=== PATIENT | male | born 1955 | race Caucasian/White ===

== ENCOUNTER 2017-03-15 07:25 | Day surgery (SDC) | payer BC ==
[2017-03-15] MEDS ORDERED: NALOXONE HCL INJ/PF 0.4 MG/1 ML SDV ONE (07:50)
[2017-03-15] MEDS ORDERED: ONDANSETRON HCL INJ/PF 4 MG/2 ML SDV ONE (07:50)
[2017-03-15] MEDS ORDERED: DIPHENHYDRAMINE HCL 50 MG/ML VIAL ONE (07:50)
[2017-03-15] MEDS ORDERED: EPINEPHRINE INJ 1 MG/10 ML DISP.SYRIN ONE (07:51)
[2017-03-15] MEDS ORDERED: FLUMAZENIL INJ 0.5 MG/5 ML VIAL IV ONE (07:51)
[2017-03-15] MEDS ORDERED: GLUCAGON,HUMAN RECOMB 1 MG INJ ONE (07:51)
[2017-03-15] MEDS: MIDAZOLAM 2 MG/2 ML INJ ONE ×2 (08:12→08:17)
[2017-03-15] MEDS: FENTANYL CITRATE INJ/PF 100 MCG/2 ML AMPUL ONE ×3 (08:14→08:20)
[2017-03-15 09:20] VITALS: BP 115/60
--- NOTE | 2017-03-15 09:54 | Operative Report ---
Operative Report DATE OF SURGERY: 03/15/17 Operative Report: The risks benefits and alternatives of the procedure explained to the patient in detail and informed consent is obtained. A GIF Olympus video scope was inserted into the patient's mouth and hypopharynx, the esophagus is identified intubated and insufflated, the scope was then advanced through the esophagus stomach and duodenum, retroflexion maneuver is done, the esophagus stomach and first and second portions of the duodenum examined PREOPERATIVE DIAGNOSIS: GI bleeding POSTOPERATIVE DIAGNOSIS: Status post gastric bypass. Nonfunctional gastric bypass direct access to the inaja stomach is noted. Clean-based gastric ulcer without any active bleeding adjacent to the entry point to the inaja stomach OPERATION: EGD with biopsy SURGEON: SOMMER GARCIA ANESTHESIA: Moderate Sedation - 4 mg of Versed, 100 mcg of fentanyl. Conscious sedation monitoring time 30 minutes. TISSUE REMOVED OR ALTERED: Gastric specimen obtained to rule out Helicobacter pylori COMPLICATIONS: None. ESTIMATED BLOOD LOSS: None. INTRAOPERATIVE FINDINGS: As described above. PROCEDURE: Patient tolerated procedure well. No immediate postprocedure complications are noted. Patient discharged in good condition. Discharge date 03/15/2017. Discharge diet: Regular. Discharge activity: Regular. [id number] to discuss findings. Patient instructed to call the office or proceed to the emergency room should there be any further problems or questions. Surgical referral. We will wait on biopsies.
== END 2017-03-15 10:00 | disposition home or self-care (01) ==
LOC: END 07:25
PROVIDERS: ATTEND Internal Medicine Gastroenterology
PROC: 0DB68ZX Excision of Stomach, Via Natural or Artificial Opening Endoscopic, Diagnostic (ICD-10-PCS; principal; 2017-03-15 08:00)
DX: K25.9 Gastric ulcer, unspecified as acute or chronic, without hemorrhage or perforation (principal); K95.89 Other complications of other bariatric procedure; K92.1 Melena; D64.9 Anemia, unspecified; M06.9 Rheumatoid arthritis, unspecified; I10 Essential (primary) hypertension; M10.9 Gout, unspecified; M47.9 Spondylosis, unspecified; Z87.891 Personal history of nicotine dependence; Z79.899 Other long term (current) drug therapy
CPT/HCPCS: 43239; 88342 ×2; 88305 ×2; J2250; J3010; J0171; J1200; J1610; J2310; J2405; J3490

== ENCOUNTER → 2019-09-07 | Outpatient (CLI) | payer MEDICARE, MEDICAID ==
--- NOTE | 2019-09-07 15:20 | XCELERA REPORT ---
[address] [address] Lower Extremity Venous Evaluation Procedure: A bilateral duplex scan of the lower extremity veins was performed. The evaluation included responses to compression and other maneuvers with patient in the supine and standing positions to assess venous insufficiency. Right Sided Venous Evaluation Deep venous system evaluation shows Partial flow, echogenic content in a part of the Gastrocnemius vein. Otherwise patent veins with no significant reflux identified. Sapheno Femoral junction: no reflux. Greater Saphenous vein, Proximal thigh: reflux: no reflux. Greater Saphenous vein, mid thigh: reflux:no reflux. Greater Saphenous vein, Distal thigh: reflux:no reflux. Greater Saphenous vein, Proximal below knee: reflux: none Greater Saphenous vein, Mid below knee: reflux: none. Greater Saphenous vein, Distal below knee: reflux: no reflux. No significant Perforators identified. Left Sided Venous Evaluation Deep venous system evaluation shows patent veins with no significant reflux identified. Sapheno Femoral junction: no reflux. Greater Saphenous vein, Proximal thigh: reflux: no reflux. Greater Saphenous vein, mid thigh: reflux:no reflux. Greater Saphenous vein, Distal thigh: reflux:no reflux. Greater Saphenous vein, Proximal below knee: reflux: 2.6 seconds. Diameter of 4 mm. Greater Saphenous vein, Mid below knee: reflux: 2.06 seconds. Diameter of 3 mm. Greater Saphenous vein, Distal below knee: reflux: no reflux. Small Saphenous vein,: reflux: 2.75 seconds. Diameter of 5 mm. No significant Perforators identified. Interpretation Summary Chronic, limited segment of Deep venous thrombosis in the right Gastrocnemius vein. Limited Superficial reflux in the left Greater and Small Saphenous veins. Name: CAITLIN RAVI Age: 64 yrs Gender: Male : 1955 Patient Status: Outpatient Patient Location: Study Date: 09/07/2019 11:32 AM Reason For Study: PAIN IN LEGS Ordering Physician: RICO YOU Performed By: Dominga Courtney : RICO YOU > Rico You
== END ==
LOC: SP 10:27
PROVIDERS: ATTEND Surgery
DX: I87.2 Venous insufficiency (chronic) (peripheral) (principal); M79.669 Pain in unspecified lower leg
CPT/HCPCS: 93970

== ENCOUNTER 2019-10-09 11:03 | Observation (INO) | payer MEDICARE, MEDICAID ==
[2019-10-09] MEDS ORDERED: NORMAL SALINE 1000 ML 1,000 ML IV ONE (11:28)
--- NOTE | 2019-10-09 11:31 | ER Document Report ---
ED Medical Screen (RME) - General Chief Complaint: Weakness Stated Complaint: NEAR SYNCOPE/WEAKNESS Time Seen by Provider: 10/09/19 11:25 Primary Care Provider: CLARI SANTO MD [Primary Care Provider] - Follow up as needed TRAVEL OUTSIDE OF THE [place] IN LAST 30 DAYS: No - HPI Notes: 10/09/19 11:29 Patient is a 64-year-old male with a history of gastric bypass, osteoarthritis, rheumatoid arthritis, previous gastric ulcer with bleeding 4 to 5 years ago who presents complaining of generalized weakness and fatigue over the past several days. He has noted some epigastric abdominal pain as well. Patient has noticed black-colored stool and was placed on Xarelto about 3 weeks ago for blood clots in his legs. No fever, chest pain, shortness of breath. I have treated and performed a rapid initial assessment of this patient. A comprehensive ED assessment and evaluation of the patient, analysis of test results and completion of medical decision making process will be conducted by additional ED providers. PHYSICAL EXAMINATION: GENERAL: Well-appearing, well-nourished and in no acute distress. A&Ox4. Answers questions appropriately. Abdomen: Limited exam in triage, but tenderness over the epigastrium to palpation Skin: There is some pallor noted to the skin/eyes. - Related Data Allergies/Adverse Reactions: aspirin Adverse Reaction (Verified 03/14/17 17:30) Home Medications: Xarelto. Oxycodone. Omeprazole. Buspirone. Sucrafate. Lisinopril. Methotrexate. Aspirin Past Medical History - Social History Frequency of alcohol use: None Drug Abuse: None - Past Medical History Cardiac Medical History: Denies: Hx Coronary Artery Disease, Hx Heart Attack, Hx Hypertension Pulmonary Medical History: Denies: Hx Asthma, Hx Bronchitis, Hx COPD, Hx Pneumonia Neurological Medical History: Denies: Hx Cerebrovascular Accident, Hx Seizures Musculoskeltal Medical History: Reports Hx Arthritis - RA, OSTEOARTHRITIS - Immunizations Hx Diphtheria, Pertussis, Tetanus Vaccination: Yes Physical Exam - Vital signs Vitals: Temp Pulse Resp BP Pulse Ox 98.3 F 77 18 119/68 100 10/09/19 11:12 10/09/19 11:12 10/09/19 11:12 10/09/19 11:12 10/09/19 11:12 Course - Vital Signs Vital signs: Temp Pulse Resp BP Pulse Ox 98.3 F 77 18 119/68 100 10/09/19 11:12 10/09/19 11:12 10/09/19 11:12 10/09/19 11:12 10/09/19 11:12 Doctor's Discharge - Discharge Referrals: CLARI SANTO MD [Primary Care Provider] - Follow up as needed
[2019-10-09] MEDS ORDERED: PANTOPRAZOLE SODIUM 40 MG VIAL IV ONE (12:47)
[2019-10-09 12:51] LABS: ABSOLUTE LYMPHOCYTES (AUTO) 2.1 10^3/uL (0.5-4.7); ABSOLUTE MONOCYTES (AUTO) 0.4 10^3/uL (0.1-1.4); ABSOLUTE NEUT (AUTO) 4.7 10^3/uL (1.7-8.2); BASOPHILS % (AUTO) 0.5 % (0-2); EOSINOPHILS % (AUTO) 0.6 % (0-6); HEMATOCRIT 34.5 % (37.9-51.0); HEMOGLOBIN 11.8 g/dL (13.5-17.0); MEAN CORPUSCULAR HEMOGLOBIN 33.8 pg (27.0-33.4); MEAN CORPUSCULAR HGB CONC 34.3 g/dL (32.0-36.0); MEAN CORPUSCULAR VOLUME 99 fl (80-97); MONOCYTES % (AUTO) 5.8 % (3-13); PLATELET COUNT 170 10^3/uL (150-450); RED BLOOD COUNT 3.49 10^6/uL (4.35-5.55); RED CELL DISTRIBUTION WIDTH 15.2 % (11.5-14.0); SEGMENTED NEUTROPHILS % (AUTO) 64.1 % (42-78); TOTAL CELLS COUNTED % (AUTO) 100 %; WHITE BLOOD COUNT 7.3 10^3/uL (4.0-10.5)
[2019-10-09 12:55] LABS: INTERNATIONAL RATION (INR) 1.58
[2019-10-09 12:56] LABS: PARTIAL THROMBOPLASTIN TIME 29.9 SEC (23.5-35.8)
[2019-10-09 13:48] LABS: ALBUMIN 3.8 g/dL (3.5-5.0); ALKALINE PHOSPHATASE 38 U/L (38-126); ANION GAP 10 (5-19); ASPARTATE AMINO TRANSFERASE 51 U/L (17-59); BILIRUBIN,DIRECT 0.3 mg/dL (0.0-0.4); BILIRUBIN,TOTAL 1.1 mg/dL (0.2-1.3); BLOOD UREA NITROGEN 38 mg/dL (7-20); CALCIUM 9.6 mg/dL (8.4-10.2); CARBON DIOXIDE 24 mmol/L (22-30); CHLORIDE 104 mmol/L (98-107); GLUCOSE 88 mg/dL (75-110); POTASSIUM 4.7 mmol/L (3.6-5.0); TOTAL PROTEIN 7.3 g/dL (6.3-8.2)
[2019-10-09 14:04] LABS: APPEARANCE,URINE CLEAR; BILIRUBIN,URINE NEGATIVE (NEGATIVE); COLOR,URINE YELLOW; GLUCOSE, URINE NEGATIVE (NEGATIVE); KETONES,URINE NEGATIVE (NEGATIVE); PROTEIN,URINE NEGATIVE (NEGATIVE); URINE SPECIFIC GRAVITY 1.017; UROBILINOGEN,URINE NEGATIVE mg/dL (<2.0)
--- NOTE | 2019-10-09 14:42 | ER Document Report ---
ED General - General Chief Complaint: Weakness Stated Complaint: NEAR SYNCOPE/WEAKNESS Time Seen by Provider: 10/09/19 11:25 Primary Care Provider: CLARI SANTO MD [Primary Care Provider] - Follow up as needed TRAVEL OUTSIDE OF THE [place] IN LAST 30 DAYS: No - HPI Notes: Patient is a 64-year-old male who presents emergency department for evaluation of weakness and melena. He states that he has had 3 or 4 episodes of melena in the last 72 hours. He states he just feels weak, states he is having trouble lifting his arms. He has a history of gastric bypass as well as a history of a gastric ulcer that was bleeding. This bleeding was self-limited. He has been on omeprazole since then, taking it as directed. The patient was placed on baby aspirin as well as Xarelto back in August 2019. He had been diagnosed at that point with a DVT. - Related Data Allergies/Adverse Reactions: aspirin Adverse Reaction (Verified 03/14/17 17:30) Home Medications: Xarelto. Oxycodone. Omeprazole. Buspirone. Sucrafate. Lisinopril. Methotrexate. Aspirin Past Medical History - General Information source: Patient - Social History Smoking Status: Never Smoker Frequency of alcohol use: None Drug Abuse: None Family History: Reviewed & Not Pertinent Patient has suicidal ideation: No Patient has homicidal ideation: No - Past Medical History Cardiac Medical History: Reports: Hx DVT, Hx Hypertension Denies: Hx Coronary Artery Disease, Hx Heart Attack Pulmonary Medical History: Denies: Hx Asthma, Hx Bronchitis, Hx COPD, Hx Pneumonia Neurological Medical History: Denies: Hx Cerebrovascular Accident, Hx Seizures Musculoskeletal Medical History: Reports Hx Arthritis - RA, OSTEOARTHRITIS - Immunizations Hx Diphtheria, Pertussis, Tetanus Vaccination: Yes Review of Systems - Review of Systems Constitutional: See HPI EENT: No symptoms reported Cardiovascular: No symptoms reported Respiratory: No symptoms reported Gastrointestinal: See HPI Genitourinary: No symptoms reported Musculoskeletal: No symptoms reported Skin: No symptoms reported Neurological/Psychological: No symptoms reported Physical Exam - Vital signs Vitals: Temp Pulse Resp BP Pulse Ox 98.3 F 77 18 119/68 100 10/09/19 11:12 10/09/19 11:12 10/09/19 11:12 10/09/19 11:12 10/09/19 11:12 - Notes Notes: Vital signs reviewed, please refer to chart. Head is normocephalic, atraumatic. Pupils equal round, reactive to light. Neck is supple without meningismus. Heart is regular rate and rhythm. Lungs are clear to auscultation bilaterally. Abdomen is soft, nontender, normoactive bowel sounds throughout. Extremities without cyanosis, clubbing. Posterior calves are nontender. Peripheral pulses are equal. Skin is warm and dry. Patient is awake, alert, neurological exam is nonfocal. Course - Re-evaluation Re-evalutation: 10/09/19 14:50 Patient is a 64-year-old male who presents emergency department for evaluation. He has a history of gastric bypass, gastric ulcer, and upper GI bleed. He was recently started on aspirin as well as Xarelto for chronic appearing DVT. I did look at his vascular history, it was a chronic and limited gastrocnemius DVT. Patient is stable at this time. His blood work is consistent with an upper GI bleed, but his hemoglobin is only mildly low. At this point I do believe it is reasonable to observe the patient off of aspirin and Xarelto. I wonder if it is appropriate for this patient to be on these medications for this chronic appear ing DVT at this time, particularly given his bleeding history. I spoke with Dr. Michael, he agrees, and will admit the patient for further care. - Vital Signs Vital signs: Temp Pulse Resp BP Pulse Ox 98.3 F 77 13 102/61 98 10/09/19 11:12 10/09/19 11:12 10/09/19 14:05 10/09/19 14:05 10/09/19 14:05 - Laboratory Result Diagrams: 10/09/19 12:23 10/09/19 12:23 Laboratory results interpreted by me: 10/09/19 10/09/19 10/09/19 12:23 12:23 12:23 RBC 3.49 L Hgb 11.8 L Hct 34.5 L MCV 99 H MCH 33.8 H RDW 15.2 H PT 19.0 H BUN 38 H Discharge - Discharge Clinical Impression: Upper GI bleed Condition: Stable Disposition: ADMITTED OBSERVATION Admitting Provider: Dr. Michael, Hospitalist Unit Admitted: Telemetry Referrals: CLARI SANTO MD [Primary Care Provider] - Follow up as needed
[2019-10-09] MEDS ORDERED: (PENDING PHARMACY ID) (Oxycodone Hcl/Acetaminophen [Oxycodone-Acetaminophen 10-325] 1 EACH PO PRN (16:30)
[2019-10-09] MEDS ORDERED: (PENDING PHARMACY ID) (Doxepin Hcl [Silenor] 6 MG) PO PRN (16:30)
--- NOTE | 2019-10-09 17:19 | PDOC H&P ---
History of Present Illness Admission Date/PCP: 10/09/19 15:03 CLRAI SANTO MD History of Present Illness: CAITLIN RAVI is a 64 year old male with past medical history of hypertension, gastric bypass, peptic ulcer disease, DVT, rheumatoid arthritis, former smoker who presents the ED with progressive black tarry sticky stools x4/3 days and persistent aching abdominal pain. Patient has had a upper GI bleed in the past due to ulcers and this was verified by EGD done by his GI physician. They had stated this was due to loosened shayan along his gastric bypass line. Hemoglobin here is above 11 however patient is on Xarelto and aspirin per his PCP orders. 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 He has been on aspirin presumably for significant family history of [place] in his father at age 36. General surgery available here for end oscopies if needed and he will be contacted if hemoglobin continues to drop. Otherwise, patient will be monitored here with serial hemoglobin rechecks while off his blood thinner medications. He may be appropriate for outpatient follow- up with his GI physician if he has no further bleeding. Past Medical History Cardiac Medical History: Reports: DVT, Hypertension Denies: Coronary Artery Disease, Myocardial Infarction Pulmonary Medical History: Denies: Asthma, Bronchitis, Chronic Obstructive Pulmonary Disease (COPD), Pneumonia Neurological Medical History: Denies: Seizures Malignancy Medical History: Reports: None GI Medical History: Reports: Peptic Ulcer Disease Musculoskeltal Medical History: Reports: Arthritis - RA, OSTEOARTHRITIS Skin Medical History: Reports: None Psychiatric Medical History: Reports: None Hematology: Reports: Anemia - BORDERLINE Past Surgical History Past Surgical History: Reports: Gastric Bypass Surgery, Herniorrhaphy Social History Information Source: Patient Lives with: Spouse/Significant other Smoking Status: Former Smoker - Advance Directive Resuscitation Status: Full Code Family History Family History: Reviewed & Not Pertinent, CAD, DM Parental Family History Reviewed: Yes Children Family History Reviewed: NA Sibling(s) Family History Reviewed.: NA Medication/Allergy Home Medications: Buspirone HCl [Buspar 5 mg Tablet] 7.5 mg PO BID 10/09/19 Doxepin HCl [Silenor] 6 mg PO HSP PRN 10/09/19 Etanercept [Enbrel Sureclick] 50 mg SQ 10/09/19 Furosemide [Lasix] 20 mg PO DAILY 10/09/19 Lisinopril 20 mg PO DAILY 10/09/19 Methotrexate/Pf [Otrexup 15 mg/0.4 ml Auto-Inj] 15 mg SQ 10/09/19 Omeprazole 40 mg PO BID 10/09/19 Oxycodone HCl/Acetaminophen [Oxycodone-Acetaminophen 10-325] 1 each PO Q6HP PRN 10/09/19 Rivaroxaban [Xarelto 15 mg Tablet] 15 mg PO BID 10/09/19 Sucralfate [Carafate 1 gm Tablet] 1 gm PO QID 10/09/19 Allergies/Adverse Reactions: aspirin Adverse Reaction (Verified 03/14/17 17:30) Review of Systems All systems: reviewed and no additional remarkable complaints except as stated Constitutional: PRESENT: as per HPI, fatigue, weakness Cardiovascular: PRESENT: as per HPI Gastrointestinal: PRESENT: abdominal pain, heartburn, melena Genitourinary: PRESENT: as per HPI Musculoskeletal: PRESENT: as per HPI Integumentary: PRESENT: as per HPI Neurological: PRESENT: as per HPI Psychiatric: PRESENT: as per HPI Endocrine: PRESENT: as per HPI Hematologic/Lymphatic: PRESENT: as per HPI Allergic/Immunologic: PRESENT: as per HPI Physical Exam Vital Signs: Temp Pulse Resp BP Pulse Ox 98.1 F 77 22 H 112/72 100 10/09/19 16:00 10/09/19 11:12 10/09/19 16:01 10/09/19 16:00 10/09/19 16:01 Intake & Output 10/08/19 10/09/19 10/10/19 06:59 06:59 06:59 Intake Total 1000 Balance 1000 Weight 95.6 kg General appearance: PRESENT: no acute distress, well-developed, well-nourished Head exam: PRESENT: atraumatic, normocephalic Eye exam: PRESENT: conjunctiva pink Mouth exam: PRESENT: moist Respiratory exam: PRESENT: clear to auscultation francesco. ABSENT: rales, rhonchi, wheezes Cardiovascular exam: PRESENT: RRR. ABSENT: diastolic murmur, rubs, systolic murmur GI/Abdominal exam: PRESENT: normal bowel sounds, soft, tenderness Rectal exam: PRESENT: deferred Musculoskeletal exam: PRESENT: ambulatory Neurological exam: PRESENT: alert, awake, oriented to person, oriented to place, oriented to time, oriented to situation Psychiatric exam: PRESENT: appropriate affect, normal mood Skin exam: PRESENT: dry, intact, warm Results Laboratory Results: 10/09/19 12:23 10/09/19 12:23 10/09/19 10/09/19 10/09/19 12:23 12:23 12:23 WBC 7.3 RBC 3.49 L Hgb 11.8 L Hct 34.5 L MCV 99 H MCH 33.8 H MCHC 34.3 RDW 15.2 H Plt Count 170 Seg Neutrophils % 64.1 Sodium 138.3 Potassium 4.7 Chloride 104 Carbon Dioxide 24 Anion Gap 10 BUN 38 H Creatinine 1.07 Est GFR ( Amer) > 60 Glucose 88 Calcium 9.6 Magnesium 2.1 Total Bilirubin 1.1 AST 51 Alkaline Phosphatase 38 Total Protein 7.3 Albumin 3.8 Lipase 35.7 Urine Color Urine Appearance Urine pH Ur Specific [place] Urine Protein Urine Glucose (UA) Urine Ketones Urine Blood Urine RBC (Auto) Blood Type A POSITIVE Antibody Screen NEGATIVE 10/09/19 13:30 WBC RBC Hgb Hct MCV MCH MCHC RDW Plt Count Seg Neutrophils % Sodium Potassium Chloride Carbon Dioxide Anion Gap BUN Creatinine Est GFR ( Amer) Glucose Calcium Magnesium Total Bilirubin AST Alkaline Phosphatase Total Protein Albumin Lipase Urine Color YELLOW Urine Appearance CLEAR Urine pH 6.0 Ur Specific [place] 1.017 Urine Protein NEGATIVE Urine Glucose (UA) NEGATIVE Urine Ketones NEGATIVE Urine Blood NEGATIVE Urine RBC (Auto) 0 Blood Type Antibody Screen Assessment and Plan - Diagnosis (1) Upper GI bleed Is this a current diagnosis for this admission?: Yes Plan: Has history of bleeding ulcers at staple line of gastric bypass; followed by [facility] [place] [facility] per patient Takes PPI, Carafate, Tums at home 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 Protonix twice daily started on admission GI unavailable currently but general surgery available for endoscopy if needed reportedly Trend hemoglobin; transfuse for Hgb <7 or abrupt significant drop in hgb -Patient has a large bright red bloody stool, sent for stat CTA abdomen and contact general surgery immediately (2) Acute blood loss anemia Is this a current diagnosis for this admission?: Yes Plan: Due to GI bleed Takes PPI, Carafate, Tums at home 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 Protonix twice daily started on admission GI unavailable currently but general surgery available for endoscopy if needed reportedly Trend hemoglobin (3) Gastric bypass status for obesity Is this a current diagnosis for this admission?: Yes Plan: Per patient he is consistent with his vitamin supplements Reportedly has had complications with falling staple line per patient (4) Hypertension Is this a current diagnosis for this admission?: Yes Plan: Hold home medications as BP is low on admission here in the setting of active bleeding (5) Former smoker Is this a current diagnosis for this admission?: Yes (6) Acute DVT (deep venous thrombosis) Is this a current diagnosis for this admission?: Yes Plan: Was put on Xarelto approximately 1 month ago by PCP when he was found to have acute RLE DVT and LLE superficial thrombosis Aspirin was also continued along with Xarelto which may be the source of the bleeding episodes currently Hold Xarelto and aspirin May need evaluation for IVC filter by general surgery (7) Rheumatoid arthritis Is this a current diagnosis for this admission?: Yes Plan: Takes Enbrel and methotrexate weekly on Sundays, continued (8) Peptic ulcer disease Is this a current diagnosis for this admission?: Yes (9) Melena Is this a current diagnosis for this admission?: Yes - Time Time Spent with patient: Greater than 16 minutes advance care planning time spent with patient and spouse discussing all aspects of CODE STATUS including chest compressions/cardioversion/intubation and they agreed patient would like to be full code. His M PONitish is his spouse Juan Green phone number [phone] Time Spent with patient: 35 or more minutes Medications reviewed and adjusted accordingly: Yes - Inpatient Certification Based on my medical assessment, after consideration of the patient's comorbidities, presenting symptoms, or acuity I expect that the services needed warrant INPATIENT care.: No I certify that my determination is in accordance with my understanding of Medicare's requirements for reasonable and necessary INPATIENT services [42 CFR 412.3e].: No Medical Necessity: Risk of Complication if Not Cared For in Hospital
[2019-10-09] MEDS ORDERED: (PENDING PHARMACY ID) (Buspirone Hcl [Buspar 5 Mg Tablet] 7.5 MG) PO SCH (18:00)
--- NOTE | 2019-10-09 20:56 | EKG REPORT ---
SEVERITY:- NORMAL ECG - SINUS RHYTHM : Confirmed by: Jorge A Briscoe 09-Oct-2019 20:55:11
[2019-10-09] MEDS: PANTOPRAZOLE SODIUM 40 MG VIAL IV SCH (21:41)
[2019-10-09] MEDS: SUCRALFATE 1 GM TABLET PO SCH ×2 (21:41→21:58)
[2019-10-09] MEDS: OXYCODONE HCL IR 5 MG TABLET PO PRN (21:41)
[2019-10-09] MEDS: OXYCODONE-ACETAMINOPHEN 5-325 MG TABLET PO PRN (21:42)
[2019-10-10] MEDS: OXYCODONE HCL IR 5 MG TABLET PO PRN ×3 (04:14→18:11)
[2019-10-10] MEDS: OXYCODONE-ACETAMINOPHEN 5-325 MG TABLET PO PRN ×3 (04:14→18:11)
[2019-10-10 05:38] LABS: ABSOLUTE EOSINOPHILS # (AUTO) 0.2 10^3/uL (0.0-0.6); ABSOLUTE LYMPHOCYTES (AUTO) 2.6 10^3/uL (0.5-4.7); ABSOLUTE MONOCYTES (AUTO) 0.4 10^3/uL (0.1-1.4); BASOPHILS % (AUTO) 0.5 % (0-2); HEMATOCRIT 31.9 % (37.9-51.0); HEMOGLOBIN 11.1 g/dL (13.5-17.0); LYMPHOCYTES % (AUTO) 49.7 % (13-45); MEAN CORPUSCULAR HEMOGLOBIN 34.4 pg (27.0-33.4); MEAN CORPUSCULAR HGB CONC 34.9 g/dL (32.0-36.0); MEAN CORPUSCULAR VOLUME 99 fl (80-97); MONOCYTES % (AUTO) 8.3 % (3-13); PLATELET COUNT 147 10^3/uL (150-450); RED BLOOD COUNT 3.24 10^6/uL (4.35-5.55); RED CELL DISTRIBUTION WIDTH 15.1 % (11.5-14.0); SEGMENTED NEUTROPHILS % (AUTO) 38.5 % (42-78); TOTAL CELLS COUNTED % (AUTO) 100 %; WHITE BLOOD COUNT 5.2 10^3/uL (4.0-10.5)
[2019-10-10 05:53] LABS: ALBUMIN 3.2 g/dL (3.5-5.0); ALKALINE PHOSPHATASE 33 U/L (38-126); ASPARTATE AMINO TRANSFERASE 43 U/L (17-59); BILIRUBIN,DIRECT 0.1 mg/dL (0.0-0.4); BILIRUBIN,TOTAL 0.9 mg/dL (0.2-1.3); PHOSPHORUS 4.6 mg/dL (2.5-4.5)
[2019-10-10 08:51] LABS: ABSOLUTE RETICS # 0.043 10^6/uL (0.028-0.122); RETICULOCYTE COUNT (AUTO) 1.34 % (0.66-2.85)
[2019-10-10 09:03] LABS: IRON(TIBC) 99.9 ug/dL (49-181)
[2019-10-10] MEDS: PANTOPRAZOLE SODIUM 40 MG VIAL IV SCH ×2 (09:56→21:49)
[2019-10-10] MEDS: VITAMIN B COMPLEX TABLET PO SCH (09:56)
[2019-10-10] MEDS: SUCRALFATE 1 GM TABLET PO SCH ×4 (09:56→21:49)
[2019-10-10 10:08] LABS: FOLATE 3.75 ng/mL (>2.76)
[2019-10-10] MEDS ORDERED: HYDROCORTISONE ACETATE 25 MG SUPP.RECT PR PRN (14:42)
--- NOTE | 2019-10-10 14:53 | PDOC PROGRESS REPORT ---
Subjective Progress Note for:: 10/10/19 Subjective:: Patient is a 64-year-old white male with past medical history of gastric bypass surgery, peptic ulcer disease, GI bleeding, anticoagulant use, DVT. 10/10: Patient with slightly more energy but still having dark stools. Lipase was negative and LFTs were normal. EKG showed NSR. BP is lower limit normal but patient is asymptomatic from this reportedly. No new complaints. Reason For Visit: GI BLEED, COAGULOPATHY, ACUTE BLOOD LOSS ANEMIA Physical Exam Vital Signs: Temp Pulse Resp BP Pulse Ox 97.9 F 58 L 12 107/62 98 10/10/19 12:09 10/10/19 12:09 10/10/19 12:09 10/10/19 12:09 10/10/19 12:09 Intake & Output 10/09/19 10/10/19 10/11/19 06:59 06:59 06:59 Intake Total 1458 Balance 1458 Weight 76.1 kg General appearance: PRESENT: no acute distress, well-developed, well-nourished Head exam: PRESENT: atraumatic, normocephalic Eye exam: PRESENT: conjunctiva pink Mouth exam: PRESENT: moist Respiratory exam: PRESENT: clear to auscultation francesco. ABSENT: rales, rhonchi, wheezes Cardiovascular exam: PRESENT: RRR. ABSENT: diastolic murmur, rubs, systolic murmur GI/Abdominal exam: PRESENT: normal bowel sounds, soft, tenderness - Very mild diffuse abdominal tenderness. ABSENT: distended, guarding, mass, organolmegaly, rebound Psychiatric exam: PRESENT: appropriate affect, normal mood Skin exam: PRESENT: dry, intact, warm Results Laboratory Results: 10/10/19 04:50 10/09/19 12:23 10/09/19 10/10/19 10/10/19 17:36 04:50 04:50 WBC 5.2 RBC 3.24 L Hgb 11.1 L Hct 31.9 L MCV 99 H MCH 34.4 H MCHC 34.9 RDW 15.1 H Plt Count 147 L Seg Neutrophils % 38.5 L Retic Count (auto) Phosphorus 4.6 H Magnesium 2.1 Iron TIBC % Saturation Ferritin Total Bilirubin 0.9 AST 43 Alkaline Phosphatase 33 L Total Protein 6.0 L Albumin 3.2 L Lipase 46.9 Vitamin B12 Folate 10/10/19 10/10/19 04:50 04:50 WBC RBC Hgb Hct MCV MCH MCHC RDW Plt Count Seg Neutrophils % Retic Count (auto) 1.34 Phosphorus Magnesium Iron 99.9 TIBC 301 % Saturation 33 Ferritin 88.20 Total Bilirubin AST Alkaline Phosphatase Total Protein Albumin Lipase Vitamin B12 265.0 Folate 3.75 Assessment and Plan - Diagnosis (1) Upper GI bleed Is this a current diagnosis for this admission?: Yes Plan: Has history of bleeding ulcers at staple line of gastric bypass; followed by [facility] per patient Takes PPI, Carafate, Tums at home 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 Protonix twice daily started on admission GI unavailable currently but general surgery available for endoscopy if needed emergently; if patient has no further bloody stools or melena off of anticoagulants, could potentially follow-up with GI outpatient provided he can have prompt follow-up with endoscopy promptly available if indicated Trend hemoglobin; transfuse for Hgb <7 or abrupt significant drop in hgb -Patient has a large bright red bloody stool, sent for stat CTA abdomen and contact general surgery immediately (2) Acute blood loss anemia Is this a current diagnosis for this admission?: Yes Plan: Due to GI bleed Takes PPI, Carafate, Tums at home 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 Protonix twice daily started on admission GI unavailable currently but general surgery available for endoscopy if needed reportedly Trend hemoglobin Hemoglobin went from 11.8 to 11.1 after admission Patient does also note having some bright red blood on the toilet paper intermittently likely due to hemorrhoids; added Anusol suppositories (3) Gastric bypass status for obesity Is this a current diagnosis for this admission?: Yes (4) Hypertension Is this a current diagnosis for this admission?: Yes (5) Former smoker Is this a current diagnosis for this admission?: Yes (6) Acute DVT (deep venous thrombosis) Is this a current diagnosis for this admission?: Yes (7) Rheumatoid arthritis Is this a current diagnosis for this admission?: Yes (8) Peptic ulcer disease Is this a current diagnosis for this admission?: Yes (9) Melena Is this a current diagnosis for this admission?: Yes - Time Time Spent with patient: 25-34 minutes Anticipated discharge: Home Within: within 48 hours - Inpatient Certification Medical Necessity: Significant Comorbidiites Make Outpatient Treatment Too Risky, Risk of Complication if Not Cared For in Hospital
[2019-10-11] MEDS: OXYCODONE HCL IR 5 MG TABLET PO PRN ×4 (00:30→20:25)
[2019-10-11] MEDS: OXYCODONE-ACETAMINOPHEN 5-325 MG TABLET PO PRN ×4 (00:31→20:27)
[2019-10-11 05:26] LABS: ABSOLUTE EOSINOPHILS # (AUTO) 0.1 10^3/uL (0.0-0.6); ABSOLUTE LYMPHOCYTES (AUTO) 1.6 10^3/uL (0.5-4.7); ABSOLUTE MONOCYTES (AUTO) 0.5 10^3/uL (0.1-1.4); ABSOLUTE NEUT (AUTO) 1.8 10^3/uL (1.7-8.2); BASOPHILS % (AUTO) 0.9 % (0-2); EOSINOPHILS % (AUTO) 3.3 % (0-6); HEMATOCRIT 30.7 % (37.9-51.0); HEMOGLOBIN 10.8 g/dL (13.5-17.0); LYMPHOCYTES % (AUTO) 38.6 % (13-45); MEAN CORPUSCULAR HEMOGLOBIN 34.5 pg (27.0-33.4); MEAN CORPUSCULAR HGB CONC 35.3 g/dL (32.0-36.0); MEAN CORPUSCULAR VOLUME 98 fl (80-97); PLATELET COUNT 126 10^3/uL (150-450); RED BLOOD COUNT 3.14 10^6/uL (4.35-5.55); RED CELL DISTRIBUTION WIDTH 14.8 % (11.5-14.0); SEGMENTED NEUTROPHILS % (AUTO) 45.2 % (42-78); TOTAL CELLS COUNTED % (AUTO) 100 %
[2019-10-11] MEDS: SUCRALFATE 1 GM TABLET PO SCH ×4 (09:09→21:46)
[2019-10-11] MEDS: PANTOPRAZOLE SODIUM 40 MG VIAL IV SCH ×2 (09:09→21:46)
[2019-10-11] MEDS: VITAMIN B COMPLEX TABLET PO SCH (09:09)
[2019-10-11 10:28] LABS: ABSOLUTE EOSINOPHILS # (AUTO) 0.1 10^3/uL (0.0-0.6); ABSOLUTE LYMPHOCYTES (AUTO) 1.7 10^3/uL (0.5-4.7); ABSOLUTE MONOCYTES (AUTO) 0.6 10^3/uL (0.1-1.4); ABSOLUTE NEUT (AUTO) 1.5 10^3/uL (1.7-8.2); BASOPHILS % (AUTO) 0.7 % (0-2); HEMATOCRIT 34.7 % (37.9-51.0); HEMOGLOBIN 12.2 g/dL (13.5-17.0); LYMPHOCYTES % (AUTO) 44.3 % (13-45); MEAN CORPUSCULAR HEMOGLOBIN 34.6 pg (27.0-33.4); MEAN CORPUSCULAR HGB CONC 35.2 g/dL (32.0-36.0); MEAN CORPUSCULAR VOLUME 98 fl (80-97); MONOCYTES % (AUTO) 14.3 % (3-13); PLATELET COUNT 132 10^3/uL (150-450); RED BLOOD COUNT 3.53 10^6/uL (4.35-5.55); RED CELL DISTRIBUTION WIDTH 14.9 % (11.5-14.0); SEGMENTED NEUTROPHILS % (AUTO) 37.7 % (42-78); TOTAL CELLS COUNTED % (AUTO) 100 %; WHITE BLOOD COUNT 3.9 10^3/uL (4.0-10.5)
[2019-10-11] MEDS: HYDROCORTISONE ACETATE 25 MG SUPP.RECT PR SCH ×2 (12:08→17:02)
--- NOTE | 2019-10-11 15:24 | PDOC PROGRESS REPORT ---
Subjective Subjective:: Patient is a 64-year-old white male with past medical history of gastric bypass surgery, peptic ulcer disease, GI bleeding, anticoagulant use, DVT. 10/10: Patient with slightly more energy but still having dark stools. Lipase was negative and LFTs were normal. EKG showed NSR. BP is lower limit normal but patient is asymptomatic from this reportedly. No new complaints. 10/11: Discussed with patient the plan going forward. He would like to see the GI physician here before he leaves to see if they recommend upper endoscopy to look at previously described falling staple line of his gastric bypass and previously diagnosed peptic ulcer disease. He has some chronic abdominal discomfort/pain, however when asked for more detail on this, patient states that the pain he has during this admission is completely new and much worse than his usual pain. Await GI consultation on Saturday Reason For Visit: GI BLEED, COAGULOPATHY, ACUTE BLOOD LOSS ANEMIA Physical Exam Vital Signs: Temp Pulse Resp BP Pulse Ox 98.0 F 74 16 100/45 L 100 10/11/19 12:10/11/19 12:10/11/19 12:10/11/19 12:10/11/19 12:00 Intake & Output 10/10/19 10/11/19 10/12/19 06:59 06:59 06:59 Intake Total 1458 898 120 Balance 1458 898 120 Weight 76.1 kg 73.4 kg General appearance: PRESENT: no acute distress, well-developed, well-nourished Respiratory exam: PRESENT: clear to auscultation francesco. ABSENT: rales, rhonchi, wheezes Cardiovascular exam: PRESENT: RRR. ABSENT: diastolic murmur, rubs, systolic murmur GI/Abdominal exam: PRESENT: normal bowel sounds, soft, tenderness. ABSENT: mass Musculoskeletal exam: PRESENT: ambulatory Neurological exam: PRESENT: alert, awake Psychiatric exam: PRESENT: appropriate affect, normal mood Skin exam: PRESENT: dry, intact, warm Results Laboratory Results: 10/11/19 09:52 10/09/19 12:23 10/11/19 10/11/19 04:55 09:52 WBC 4.0 3.9 L RBC 3.14 L 3.53 L Hgb 10.8 L 12.2 L Hct 30.7 L 34.7 L MCV 98 H 98 H MCH 34.5 H 34.6 H MCHC 35.3 35.2 RDW 14.8 H 14.9 H Plt Count 126 L 132 L Seg Neutrophils % 45.2 37.7 L Assessment and Plan - Diagnosis (1) Upper GI bleed Is this a current diagnosis for this admission?: Yes Plan: Has history of bleeding ulcers at staple line of gastric bypass; [place] [facility] Takes PPI, Carafate, Tums at home [employer] IV Protonix twice daily started on admission GI unavailable currently but general surgery available for endoscopy if needed emergently; if patient has no further bloody stools or melena off of anticoagulants, could potentially follow-up with GI outpatient provided he can have prompt follow-up with endoscopy promptly available if indicated Trend hemoglobin; transfuse for Hgb <7 or abrupt significant drop in hgb -Patient has a large bright red bloody stool, sent for stat CTA abdomen and contact general surgery immediately; reportedly we do not have bleeding scans available to us on the weekend here Patient states he would like GI physician evaluation before he leaves due to new worse abdominal pain which is what prompted him to come to the ER in the first place along with severe generalized fatigue; GI will not be here until Saturday Patient is high risk for surgical complication from his gastric bypass given previous evidence that the staple line was already falling and he was developing ulcerations; prudent to have GI evaluate this to see if he needs upper endoscopy (2) Peptic ulcer disease Is this a current diagnosis for this admission?: Yes Plan: Previously diagnosed on prior endoscopy Per my review of records, patient has never been checked for H. pylori; ordered H. pylori stool antigen (3) Acute blood loss anemia Is this a current diagnosis for this admission?: Yes (4) Gastric bypass status for obesity Is this a current diagnosis for this admission?: Yes (5) Hypertension Is this a current diagnosis for this admission?: Yes (6) Former smoker Is this a current diagnosis for this admission?: Yes (7) Acute DVT (deep venous thrombosis) Is this a current diagnosis for this admission?: Yes (8) Rheumatoid arthritis Is this a current diagnosis for this admission?: Yes (9) Melena Is this a current diagnosis for this admission?: Yes - Time Time Spent with patient: 15-24 minutes Anticipated discharge: Home Within: within 48 hours - Inpatient Certification Medical Necessity: Significant Comorbidiites Make Outpatient Treatment Too Risky, Need Close Monitoring Due to Risk of Patient Decompensation
[2019-10-11] MEDS ORDERED: METHOTREXATE 15 MG SQ SCH (20:03)
[2019-10-11] MEDS ORDERED: ETANERCEPT 50 MG SQ SCH (20:03)
[2019-10-12] MEDS: OXYCODONE-ACETAMINOPHEN 5-325 MG TABLET PO PRN ×4 (02:49→21:44)
[2019-10-12] MEDS: OXYCODONE HCL IR 5 MG TABLET PO PRN ×4 (02:50→21:43)
[2019-10-12] MEDS: HYDROCORTISONE ACETATE 25 MG SUPP.RECT PR SCH ×2 (09:06→17:46)
[2019-10-12] MEDS: SUCRALFATE 1 GM TABLET PO SCH ×4 (09:11→21:42)
[2019-10-12] MEDS: VITAMIN B COMPLEX TABLET PO SCH (09:11)
[2019-10-12] MEDS: PANTOPRAZOLE SODIUM 40 MG VIAL IV SCH (09:12)
[2019-10-12] MEDS: BUSPIRONE HCL 10 MG TABLET PO SCH ×2 (14:58→21:43)
--- NOTE | 2019-10-12 15:45 | PDOC PROGRESS REPORT ---
Subjective Progress Note for:: 10/12/19 Subjective:: Patient had last bowel movement within the past 24 hours which was still melanotic. Denies any lightheadedness shortness of breath or dizziness at this time. Still experiences occasional abdominal pain. Denies any bright red blood per rectum. Awaiting evaluation by terrazzo tile maker. Reason For Visit: GI BLEED, COAGULOPATHY, ACUTE BLOOD LOSS ANEMIA Physical Exam Vital Signs: Temp Pulse Resp BP Pulse Ox 97.7 F 61 16 133/62 H 100 10/12/19 13:11 10/12/19 13:11 10/12/19 13:11 10/12/19 13:11 10/12/19 13:11 Intake & Output 10/11/19 10/12/19 10/13/19 06:59 06:59 06:59 Intake Total 898 538 Balance 898 538 Weight 73.4 kg 75.5 kg General appearance: PRESENT: no acute distress, cooperative Neck exam: ABSENT: JVD Respiratory exam: PRESENT: clear to auscultation francesco, symmetrical, unlabored. ABSENT: tachypnea, wheezes Cardiovascular exam: PRESENT: RRR, +S1, +S2. ABSENT: tachycardia GI/Abdominal exam: PRESENT: normal bowel sounds, soft, tenderness. ABSENT: distended, firm, guarding, rebound, rigid Neurological exam: PRESENT: alert, awake, oriented to person, oriented to place, oriented to time, oriented to situation Results Laboratory Results: 10/11/19 09:52 10/09/19 12:23 Assessment and Plan - Diagnosis (1) Upper GI bleed Is this a current diagnosis for this admission?: Yes Plan: Has history of bleeding ulcers at staple line of gastric bypass; followed by [facility] per patient Continue Carafate IV Protonix twice daily -Awaiting evaluation by Dr. Patel with gastroenterology tomorrow regarding his melena especially given his history of gastric bypass and prior stomach ulcers noted on upper endoscopy in [address] Patel. (2) Acute blood loss anemia Is this a current diagnosis for this admission?: Yes Plan: Hemoglobin holding steady as of yesterday. We will continue to monitor CBC in the morning. -Was concerned that he may have been secondary to patient's GI bleed -Last Hb 12 and patient does not require any transfusion. -Iron studies, B12 and folic acid all within normal limits (3) Acute DVT (deep venous thrombosis) Is this a current diagnosis for this admission?: Yes Plan: Was put on Xarelto approximately 1 month ago by PCP when he was found to have acute RLE DVT and LLE superficial thrombosis Aspirin was also continued along with Xarelto which may be the source of the bleeding episodes currently Continue to hold Xarelto and aspirin for now (4) Peptic ulcer disease Is this a current diagnosis for this admission?: Yes Plan: Previously diagnosed on prior endoscopy c/w ppi and carafate (5) Rheumatoid arthritis Is this a current diagnosis for this admission?: Yes Plan: Takes Enbrel and methotrexate weekly on Sundays, continued - Time Time Spent with patient: 15-24 minutes
[2019-10-13] MEDS: OXYCODONE-ACETAMINOPHEN 5-325 MG TABLET PO PRN ×3 (03:56→17:39)
[2019-10-13] MEDS: OXYCODONE HCL IR 5 MG TABLET PO PRN ×3 (03:56→17:38)
[2019-10-13] MEDS: BUSPIRONE HCL 10 MG TABLET PO SCH ×3 (06:08→22:21)
[2019-10-13 06:12] LABS: HEMATOCRIT 30.1 % (37.9-51.0); HEMOGLOBIN 10.7 g/dL (13.5-17.0); MEAN CORPUSCULAR HEMOGLOBIN 35.1 pg (27.0-33.4); MEAN CORPUSCULAR HGB CONC 35.6 g/dL (32.0-36.0); MEAN CORPUSCULAR VOLUME 99 fl (80-97); PLATELET COUNT 115 10^3/uL (150-450); RED BLOOD COUNT 3.05 10^6/uL (4.35-5.55); RED CELL DISTRIBUTION WIDTH 15.4 % (11.5-14.0); WHITE BLOOD COUNT 3.6 10^3/uL (4.0-10.5)
[2019-10-13] MEDS: HYDROCORTISONE ACETATE 25 MG SUPP.RECT PR SCH ×2 (10:58→17:28)
[2019-10-13] MEDS: VITAMIN B COMPLEX TABLET PO SCH (11:03)
[2019-10-13] MEDS: SUCRALFATE 1 GM TABLET PO SCH ×5 (11:03→22:22)
--- NOTE | 2019-10-13 12:58 | PDOC CONSULTATION ---
Consultation Consult Date: 10/13/19 Provider Consulted: SOMMER GARCIA Consult reason:: Melena History of Present Illness Admission Date/PCP: 10/09/19 15:03 CLARI SANTO MD History of Present Illness: CAITLIN RAVI is a 64 year old male patient has been admitted by the Hospitalist service patient is having melena had an EGD doneabout 2 years ago ,had an anastomtic ulcer in the past on a ppi for now GI requested to perform EGD will schedule in the am patient had H.Pylori stool antigen sent yesterday while he may have an infection but that by itself does not lead to any bleeding will need follow up EGD to document if he still has an ulcer has not been on anticoagulation H/H is stable Past Medical History Cardiac Medical History: Reports: DVT, Hypertension Denies: Coronary Artery Disease, Myocardial Infarction Pulmonary Medical History: Denies: Asthma, Bronchitis, Chronic Obstructive Pulmonary Disease (COPD), Pneumonia Neurological Medical History: Denies: Seizures Malignancy Medical History: Reports: None GI Medical History: Reports: Peptic Ulcer Disease Musculoskeltal Medical History: Reports: Arthritis - RA, OSTEOARTHRITIS Skin Medical History: Reports: None Psychiatric Medical History: Reports: None Hematology: Reports: Anemia - BORDERLINE Past Surgical History Past Surgical History: Reports: Gastric Bypass Surgery, Herniorrhaphy Social History Lives with: Spouse/Significant other Smoking Status: Former Smoker Drugs: None - Advance Directive Resuscitation Status: Full Code Family History Family History: Reviewed & Not Pertinent, CAD, DM Parental Family History Reviewed: Yes Children Family History Reviewed: Unknown Sibling(s) Family History Reviewed.: Unknown Medication/Allergy Home Medications: Buspirone HCl [Buspar 5 mg Tablet] 7.5 mg PO BID 10/09/19 Etanercept [Enbrel Sureclick] 50 mg SQ FIELDS 10/09/19 Lisinopril 40 mg PO DAILY 10/09/19 Methotrexate/Pf [Otrexup 15 mg/0.4 ml Auto-Inj] 15 mg SQ FIELDS 10/09/19 Omeprazole 40 mg PO BID 10/09/19 Oxycodone HCl/Acetaminophen [Oxycodone-Acetaminophen 10-325] 1 each PO Q6HP PRN 10/09/19 Rivaroxaban [Xarelto 15 mg Tablet] 15 mg PO BID 10/09/19 Allergies/Adverse Reactions: aspirin Adverse Reaction (Verified 03/14/17 17:30) Review of Systems Constitutional: ABSENT: fever(s), headache(s), night sweats, weakness Eyes: ABSENT: visual disturbances Ears: ABSENT: hearing changes Nose, Mouth, and Throat: ABSENT: mouth pain, sore throat Cardiovascular: ABSENT: edema, orthropnea Respiratory: ABSENT: dyspnea, hemoptysis Gastrointestinal: PRESENT: melena. ABSENT: diarrhea, hematochezia Genitourinary: ABSENT: dysuria, hematuria Musculoskeletal: ABSENT: deformity, joint swelling Integumentary: ABSENT: pruritus, rash Neurological: ABSENT: syncope, tingling, tremor(s), vertigo Endocrine: ABSENT: polyphagia, polyuria Hematologic/Lymphatic: PRESENT: easy bruising Physical Exam Vital Signs: Temp Pulse Resp BP Pulse Ox 97.4 F 56 L 16 105/68 99 10/13/19 07:23 10/13/19 07:23 10/13/19 07:23 10/13/19 07:23 10/13/19 07:23 Intake & Output 10/12/19 10/13/19 10/14/19 06:59 06:59 06:59 Intake Total 538 1149 Balance 538 1149 Weight 75.5 kg 77.3 kg General appearance: PRESENT: no acute distress, well-developed, well-nourished Head exam: PRESENT: atraumatic, normocephalic Eye exam: PRESENT: EOMI, PERRLA. ABSENT: nystagmus, scleral icterus Mouth exam: PRESENT: moist, neck supple Throat exam: ABSENT: tonsillar exudate, tonsillogmegaly Neck exam: ABSENT: meningismus, tenderness, thyromegaly Respiratory exam: PRESENT: symmetrical, unlabored. ABSENT: tachypnea, wheezes Cardiovascular exam: PRESENT: RRR, +S2 GI/Abdominal exam: PRESENT: soft. ABSENT: rebound, rigid, tenderness Extremities exam: ABSENT: joint swelling, pedal edema Musculoskeletal exam: PRESENT: full ROM Neurological exam: PRESENT: oriented to time, oriented to situation, CN II-XII grossly intact Focused psych exam: ABSENT: restlessness Skin exam: ABSENT: petechiae, urticaria, vesicles Results Laboratory Results: 10/13/19 05:19 10/09/19 12:23 10/13/19 05:19 WBC 3.6 L RBC 3.05 L Hgb 10.7 L Hct 30.1 L MCV 99 H MCH 35.1 H MCHC 35.6 RDW 15.4 H Plt Count 115 L Assessment & Plan - Diagnosis (1) Melena Is this a current diagnosis for this admission?: Yes Plan: will schedule EGD NPO post midnight Risks, benefits and alternatives are discussed with the patient further recommendations to follow follow up H/H restart PPI - Time Time Spent: 50 to 70 Minutes
[2019-10-13] MEDS ORDERED: GLUCAGON,HUMAN RECOMB 1 MG INJ SUBCUT PRN (17:23)
[2019-10-13] MEDS ORDERED: DEXTROSE 50%-WATER 25 GM/50 ML DISP.SYRIN IV PRN ×2 (17:23)
[2019-10-13] MEDS ORDERED: DEXTROSE 40% GEL 15 GM TUBE PO PRN ×2 (17:23)
--- NOTE | 2019-10-13 17:23 | PDOC PROGRESS REPORT ---
Subjective Progress Note for:: 10/13/19 Subjective:: Patient feels well today but still expresses some abdominal pain on occasion. Reason For Visit: GI BLEED, COAGULOPATHY, ACUTE BLOOD LOSS ANEMIA Physical Exam Vital Signs: Temp Pulse Resp BP Pulse Ox 97.8 F 60 19 132/61 H 100 10/13/19 10:57 10/13/19 10:57 10/13/19 10:57 10/13/19 10:57 10/13/19 10:57 Intake & Output 10/12/19 10/13/19 10/14/19 06:59 06:59 06:59 Intake Total 538 1149 520 Balance 538 1149 520 Weight 75.5 kg 77.3 kg General appearance: PRESENT: no acute distress, cooperative Respiratory exam: PRESENT: clear to auscultation francesco GI/Abdominal exam: PRESENT: normal bowel sounds, soft. ABSENT: tenderness Neurological exam: PRESENT: alert, awake Results Laboratory Results: 10/13/19 05:19 10/09/19 12:23 10/13/19 05:19 WBC 3.6 L RBC 3.05 L Hgb 10.7 L Hct 30.1 L MCV 99 H MCH 35.1 H MCHC 35.6 RDW 15.4 H Plt Count 115 L Assessment and Plan - Diagnosis (1) Upper GI bleed Is this a current diagnosis for this admission?: Yes (2) Acute blood loss anemia Is this a current diagnosis for this admission?: Yes (3) Acute DVT (deep venous thrombosis) Is this a current diagnosis for this admission?: Yes (4) Peptic ulcer disease Is this a current diagnosis for this admission?: Yes (5) Rheumatoid arthritis Is this a current diagnosis for this admission?: Yes - Plan Summary Summary: Evaluated by GI Plan is for upper endoscopy tomorrow N.p.o. past midnight Continue PPI - Time Time Spent with patient: Less than 15 minutes
[2019-10-14] MEDS: OXYCODONE-ACETAMINOPHEN 5-325 MG TABLET PO PRN (00:05)
[2019-10-14] MEDS: OXYCODONE HCL IR 5 MG TABLET PO PRN (00:06)
[2019-10-14] MEDS ORDERED: PANTOPRAZOLE SODIUM 40 MG TABLET.DR PO SCH (06:00)
[2019-10-14] MEDS: BUSPIRONE HCL 10 MG TABLET PO SCH (06:12)
[2019-10-14] MEDS ORDERED: DIPHENHYDRAMINE HCL 50 MG/ML VIAL ONE (09:05)
[2019-10-14] MEDS ORDERED: ONDANSETRON HCL INJ/PF 4 MG/2 ML SDV ONE (09:05)
[2019-10-14] MEDS ORDERED: FLUMAZENIL INJ 0.5 MG/5 ML VIAL ONE (09:06)
[2019-10-14] MEDS ORDERED: EPINEPHRINE INJ 1 MG/10 ML DISP.SYRIN ONE (09:06)
[2019-10-14] MEDS ORDERED: NALOXONE HCL INJ/PF 0.4 MG/1 ML SDV ONE (09:06)
[2019-10-14] MEDS ORDERED: GLUCAGON,HUMAN RECOMB 1 MG INJ ONE (09:06)
[2019-10-14] MEDS: FENTANYL CITRATE INJ/PF 100 MCG/2 ML AMPUL ONE ×2 (09:19→09:21)
[2019-10-14] MEDS: MIDAZOLAM 2 MG/2 ML INJ ONE ×2 (09:19→09:21)
--- NOTE | 2019-10-14 09:29 | Operative Report ---
Operative Report DATE OF SURGERY: 10/14/19 Operative Report: The risks benefits and alternatives of the procedure explained to the patient in detail and informed consent is obtained.A GIF Olympus video scope was inserted into the patient's mouth and hypopharynx ,the esophagus is identified intubated and insufflated, the scope was then advanced through the esophagus stomach and duodenum, retroflexion maneuver is done the esophagus stomach and first and second portions of the duodenum examined PREOPERATIVE DIAGNOSIS: Melena POSTOPERATIVE DIAGNOSIS: breaddown of previous anastomosis as noted on previous exam. anastomotic ulcer. gastritis in the antrum. biopsies are obtained. no active bleeding is noted OPERATION: EGD with biopsy SURGEON: SOMMER GARCIA ANESTHESIA: Moderate Sedation TISSUE REMOVED OR ALTERED: As noted above. COMPLICATIONS: None. ESTIMATED BLOOD LOSS: None. INTRAOPERATIVE FINDINGS: As noted above. PROCEDURE: Patient tolerated the procedure well. No immediate postprocedure complications are noted. Patient is sent back to his room in good condition. Clear liquids advance as tolerated Resume previous activity level Wait on the biopsies Monitor for possible continued bleeding discuss need to continue anticoagulation with graphic coordinator given previous history of DVT and present GI bleeding
[2019-10-14] MEDS: HYDROCORTISONE ACETATE 25 MG SUPP.RECT PR SCH (10:05)
[2019-10-14] MEDS: SUCRALFATE 1 GM TABLET PO SCH (10:07)
[2019-10-14] MEDS: VITAMIN B COMPLEX TABLET PO SCH (10:07)
--- NOTE | 2019-10-14 12:16 | PDOC DISCHARGE SUMMARY ---
Impression - Admit/DC Date/PCP Admission Date/Primary Care Provider: 10/09/19 15:03 CLARI SANTO MD Discharge Date: 10/14/19 - Discharge Diagnosis (1) Upper GI bleed Is this a current diagnosis for this admission?: Yes (2) Acute blood loss anemia Is this a current diagnosis for this admission?: Yes (3) Acute DVT (deep venous thrombosis) Is this a current diagnosis for this admission?: Yes (4) Peptic ulcer disease Is this a current diagnosis for this admission?: Yes (5) Rheumatoid arthritis Is this a current diagnosis for this admission?: Yes - Assessment Summary: Patient was admitted for evaluation of suspected upper GI bleed given his continued report of melena. He was noted to be anemic as well. Iron studies, B12 and folic acid levels were within normal limits. During patient's history of gastric bypass with prior endoscopy revealing ulcer at anastomotic site in the stomach and recent initiation of Xarelto for DVT, it was deemed that it would be very important for patient to get endoscopic evaluation prior to discharge. Patient follows with Dr. Patel. Unfortunately, no GI services were available during the weekend and patient had to wait till Saturday for GI evaluation. Patient was subsequently taken for an upper endoscopy today which revealed gastric ulcer around the anastomotic site with high suspicion that this was the cause of bleeding according to the crime investigator special agent given the surrounding features. However there is no active oozing from the ulcer. It is likely that this anastomotic ulcer was aggravated by recent initiation of Xarelto. I have reviewed the recent imaging report of his venous Doppler on 09/07/2019 which shows DVT in his right gastrocnemius vein. Given that the gastrocnemius vein starts from just around the knee and runs below the knee for the most part, it should be okay to hold off on resuming anticoagulation at this time and anticoagulation may not be mandatory for such below knee DVTs especially in the setting of acute GI bleed. I have discussed this with the crime investigator special agent Dr. Patel who agrees with holding off on Xarelto for now to give the ulcer time to heal and will have patient follow-up with his primary care provider regarding whether or not to resume Xarelto at a future date. Patient's H. pylori stool antigen testing was also negative. Patient's hemoglobin has been stable and is stable for discharge home. He has been given scripts for renewal of his omeprazole and sucralfate. - Additional Information Resuscitation Status: Full Code Discharge Diet: As Tolerated Discharge Activity: Activity As Tolerated Referrals: GLORIA RICHARD MD [PEDIATRICS] - 10/20/19 2:45 pm SOMMER PATEL MD [ACTIVE STAFF] - 11/05/19 3:15 pm Prescriptions: Sucralfate [Carafate 1 gm Tablet] 1 gm PO QID 20 Days tablet Omeprazole 40 mg PO BID 30 Days Home Medications: Buspirone HCl [Buspar 5 mg Tablet] 7.5 mg PO BID 10/09/19 Etanercept [Enbrel Sureclick] 50 mg SQ FIELDS 10/09/19 Lisinopril 40 mg PO DAILY 10/09/19 Methotrexate/Pf [Otrexup 15 mg/0.4 ml Auto-Inj] 15 mg SQ FIELDS 10/09/19 Oxycodone HCl/Acetaminophen [Oxycodone-Acetaminophen 10-325] 1 each PO Q6HP PRN 10/09/19 Omeprazole 40 mg PO BID 30 Days 10/14/19 Sucralfate [Carafate 1 gm Tablet] 1 gm PO QID 20 Days tablet 10/14/19 History of Present Illiness History of Present Illness: CAITLIN RAVI is a 64 year old male with past medical history of hypertension, gastric bypass, peptic ulcer disease, DVT, rheumatoid arthritis, former smoker who presents the ED with progressive black tarry sticky stools x4/3 days and persistent aching abdominal pain. Patient has had a upper GI bleed in the past due to ulcers and this was verified by EGD done by his GI physician. They had stated this was due to loosened shayan along his gastric bypass line. Hemoglobin here is above 11 however patient is on Xarelto and aspirin per his PCP orders. 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 He has been on aspirin presumably for significant family history of MN in his father at age 36. General surgery available here for endoscopies if needed and he will be contacted if hemoglobin continues to drop. Otherwise, patient will be monitored here with serial hemoglobin rechecks while off his blood thinner medications. He may be appropriate for outpatient follow- up with his GI physician if he has no further bleeding. Physical Exam Vital Signs: Temp Pulse Resp BP Pulse Ox 98.2 F 61 16 109/59 L 100 10/14/19 08:57 10/14/19 09:50 10/14/19 09:50 10/14/19 09:50 10/14/19 09:50 Intake & Output 10/13/19 10/14/19 10/15/19 06:59 06:59 06:59 Intake Total 1149 920 250 Balance 1149 920 250 Weight 77.3 kg 65.1 kg General appearance: PRESENT: no acute distress, cooperative GI/Abdominal exam: PRESENT: normal bowel sounds, soft. ABSENT: guarding, rebound, rigid, tenderness Neurological exam: PRESENT: alert, awake Results Laboratory Results: WBC 3.6 10^3/uL (4.0-10.5) L 10/13/19 05:19 RBC 3.05 10^6/uL (4.35-5.55) L 10/13/19 05:19 Hgb 10.7 g/dL (13.5-17.0) L 10/13/19 05:19 Hct 30.1 % (37.9-51.0) L 10/13/19 05:19 MCV 99 fl (80-97) H 10/13/19 05:19 MCH 35.1 pg (27.0-33.4) H 10/13/19 05:19 MCHC 35.6 g/dL (32.0-36.0) 10/13/19 05:19 RDW 15.4 % (11.5-14.0) H 10/13/19 05:19 Plt Count 115 10^3/uL (150-450) L 10/13/19 05:19 Lymph % (Auto) 44.3 % (13-45) 10/11/19 09:52 [place] % (Auto) 14.3 % (3-13) H 10/11/19 09:52 Eos % (Auto) 3.0 % (0-6) 10/11/19 09:52 Baso % (Auto) 0.7 % (0-2) 10/11/19 09:52 Reticulocyte # 0.043 10^6/uL (0.028-0.122) 10/10/19 04:50 Absolute Neuts (auto) 1.5 10^3/uL (1.7-8.2) L 10/11/19 09:52 Absolute Lymphs (auto) 1.7 10^3/uL (0.5-4.7) 10/11/19 09:52 Absolute Monos (auto) 0.6 10^3/uL (0.1-1.4) 10/11/19 09:52 Absolute Eos (auto) 0.1 10^3/uL (0.0-0.6) 10/11/19 09:52 Absolute Basos (auto) 0.0 10^3/uL (0.0-0.2) 10/11/19 09:52 Seg Neutrophils % 37.7 % (42-78) L 10/11/19 09:52 Retic Count (auto) 1.34 % (0.66-2.85) 10/10/19 04:50 PT 19.0 SEC (11.4-15.4) H 10/09/19 12:23 INR 1.58 10/09/19 12:23 APTT 29.9 SEC (23.5-35.8) 10/09/19 12:23 Sodium 138.3 mmol/L (137-145) 10/09/19 12:23 Potassium 4.7 mmol/L (3.6-5.0) 10/09/19 12:23 Chloride 104 mmol/L (98-107) 10/09/19 12:23 Carbon Dioxide 24 mmol/L (22-30) 10/09/19 12:23 Anion Gap 10 (5-19) 10/09/19 12:23 BUN 38 mg/dL (7-20) H 10/09/19 12:23 Creatinine 1.07 mg/dL (0.52-1.25) 10/09/19 12:23 Est GFR ( Amer) > 60 (>60) 10/09/19 12:23 Est GFR (MDRD) Non-Af > 60 (>60) 10/09/19 12:23 Glucose 88 mg/dL (75-110) 10/09/19 12:23 Calcium 9.6 mg/dL (8.4-10.2) 10/09/19 12:23 Phosphorus 4.6 mg/dL (2.5-4.5) H 10/10/19 04:50 Magnesium 2.1 mg/dL (1.6-2.3) 10/10/19 04:50 Iron 99.9 ug/dL (49-181) 10/10/19 04:50 TIBC 301 ug/dL (250-450) 10/10/19 04:50 % Saturation 33 % 10/10/19 04:50 Ferritin 88.20 ng/mL (17.9-464.0) 10/10/19 04:50 Total Bilirubin 0.9 mg/dL (0.2-1.3) 10/10/19 04:50 Direct Bilirubin 0.1 mg/dL (0.0-0.4) 10/10/19 04:50 Neonat Total Bilirubin Not Reportable 10/10/19 04:50 Neonat Direct Bilirubin Not Reportable 10/10/19 04:50 Neonat Indirect Bili Not Reportable 10/10/19 04:50 AST 43 U/L (17-59) 10/10/19 04:50 ALT 29 U/L (<50) 10/10/19 04:50 Alkaline Phosphatase 33 U/L (38-126) L 10/10/19 04:50 Total Protein 6.0 g/dL (6.3-8.2) L 10/10/19 04:50 Albumin 3.2 g/dL (3.5-5.0) L 10/10/19 04:50 Lipase 46.9 U/L (23-300) 10/09/19 17:36 Vitamin B12 265.0 pg/mL (239-931) 10/10/19 04:50 Folate 3.75 ng/mL (>2.76) 10/10/19 04:50 Urine Color YELLOW 10/09/19 13:30 Urine Appearance CLEAR 10/09/19 13:30 Urine pH 6.0 (5.0-9.0) 10/09/19 13:30 Ur Specific [place] 1.017 10/09/19 13:30 Urine Protein NEGATIVE mg/dL (NEGATIVE) 10/09/19 13:30 Urine Glucose (UA) NEGATIVE mg/dL (NEGATIVE) 10/09/19 13:30 Urine Ketones NEGATIVE mg/dL (NEGATIVE) 10/09/19 13:30 Urine Blood NEGATIVE (NEGATIVE) 10/09/19 13:30 Urine Nitrite (Reflex) NEGATIVE (NEGATIVE) 10/09/19 13:30 Urine Bilirubin NEGATIVE (NEGATIVE) 10/09/19 13:30 Urine Urobilinogen NEGATIVE mg/dL (<2.0) 10/09/19 13:30 Leukocyte Esterase Rfl NEGATIVE (NEGATIVE) 10/09/19 13:30 Urine RBC (Auto) 0 /HPF 10/09/19 13:30 Urine Bacteria (Auto) TRACE /HPF 10/09/19 13:30 Urine WBC (Reflex) < 1 /HPF 10/09/19 13:30 Urine Mucus (Auto) RARE /LPF 10/09/19 13:30 Urine Ascorbic Acid NEGATIVE (NEGATIVE) 10/09/19 13:30 Blood Type A POSITIVE 10/09/19 12:23 Antibody Screen NEGATIVE 10/09/19 12:23 Plan Time Spent: Less than 30 Minutes Stroke Is this a Stroke Patient?: No Acute Heart Failure - Is this a Heart Failure Patient?: No
[2019-10-14 12:41] VITALS: BP 128/78
== END 2019-10-14 14:03 | disposition home or self-care (01) ==
LOC: ER 11:03 → EH 15:03 → 5 16:52
PROVIDERS: ADMIT Internal Medicine; ATTEND Internal Medicine
DX: K29.51 Unspecified chronic gastritis with bleeding (principal); D62 Acute posthemorrhagic anemia; K95.89 Other complications of other bariatric procedure; K28.4 Chronic or unspecified gastrojejunal ulcer with hemorrhage; Y83.2 Surgical operation with anastomosis, bypass or graft as the cause of abnormal reaction of the patient, or of later complication, without mention of misadventure at the time of the procedure; I82.461 Acute embolism and thrombosis of right calf muscular vein; M06.9 Rheumatoid arthritis, unspecified; I95.9 Hypotension, unspecified; I10 Essential (primary) hypertension; M19.90 Unspecified osteoarthritis, unspecified site; Z98.890 Other specified postprocedural states; Z79.899 Other long term (current) drug therapy; Z87.891 Personal history of nicotine dependence; Z79.01 Long term (current) use of anticoagulants; Z79.82 Long term (current) use of aspirin; Z82.49 Family history of ischemic heart disease and other diseases of the circulatory system; K91.89 Other postprocedural complications and disorders of digestive system
CPT/HCPCS: 93005; 99285; 96361; 96374; 86900; 86901; 36415 ×4; 87338; 86850; 82607; 82728; 82746; 83540; 83550; 83690; 83735 ×2; 84100; 85025 ×3; 85027; 85610; 85730; 85045; 80076; 80053; 81001; 88342 ×2; 88305 ×2; 93010; 43239; G0378 ×7; J2250; J3010; A9270 ×25; C9113 ×4; J7030; J0171; J1200; J1610; J2310; J2405; J3490

== ENCOUNTER 2019-12-03 08:28 | Day surgery (SDC) | payer MEDICARE, MEDICAID ==
[~2019-12-03 08:28] MED LIST: PROPOFOL INJ 200 MG/20 ML VIAL IV ONE
--- NOTE | 2019-12-03 09:36 | Operative Report ---
Operative Report DATE OF SURGERY: 12/03/19 Operative Report: The risk, benefits and alternatives of the procedure including the risk of bleeding, perforation requiring surgery have been explained to the patient in detail and informed consent has been obtained. Patient is taken back to the endoscopy suite and placed in left, lateral decubital position. Timeout scope. Propofol medication is administered. Rectal examination is done which did not reveal any masses, tears or fissures. An Olympus upper scope was introduced into the patient's rectum. Scope was then carefully advanced all the way to the cecum. Cecum was identified by the usual anatomical landmarks including the ileocecal valve as well as appendiceal office. Photodocumentation is obtained prescription sequentially pulled back via the various segments of the colon including the ascending colon, hepatic flexure, transverse colon, splenic flexu re, descending colon and finally into the rectosigmoid portions of the colon. Retroflexion maneuvers performed. The risks benefits and alternatives of the procedure explained to the patient in detail and informed consent is obtained.A GIF Olympus video scope was inserted into the patient's mouth and hypopharynx, the esophagus is identified intubated and insufflated, the scope was then advanced through the esophagus stomach and duodenum ,retroflexion maneuver is done the esophagus stomach and first and second portions of the duodenum examined PREOPERATIVE DIAGNOSIS: Follow-up on an anastomotic ulcer. Colorectal cancer screening POSTOPERATIVE DIAGNOSIS: Right side colon biopsy status post biopsy. Healing ulcer at the anastomotic site status post biopsy OPERATION: Colonoscopy with biopsy. EGD with biopsy SURGEON: SOMMER GARCIA ANESTHESIA: LMAC TISSUE REMOVED OR ALTERED: As noted above. COMPLICATIONS: None. ESTIMATED BLOOD LOSS: None. INTRAOPERATIVE FINDINGS: As noted above. PROCEDURE: Patient tolerated procedure well. No immediate postprocedure complications are noted. Patient is discharged in good condition. Discharge date 12/03/2019. Discharge diet: Regular. Discharge activity: Regular. 2 to 3-week follow-up to discuss findings. Patient is instructed to call the office or proceed to the emergency room should there be any further problems questions. Wait on the pathology. Can consider 10-year surveillance colonoscopy.
[2019-12-03 10:09] VITALS: BP 167/85
== END 2019-12-03 10:15 | disposition home or self-care (01) ==
LOC: END 08:28
PROVIDERS: ATTEND Internal Medicine Gastroenterology
DX: Z12.11 Encounter for screening for malignant neoplasm of colon (principal); K28.9 Gastrojejunal ulcer, unspecified as acute or chronic, without hemorrhage or perforation; K29.50 Unspecified chronic gastritis without bleeding; I10 Essential (primary) hypertension; M16.0 Bilateral primary osteoarthritis of hip; D46.4 Refractory anemia, unspecified; Z87.891 Personal history of nicotine dependence; Z79.899 Other long term (current) drug therapy; Z79.01 Long term (current) use of anticoagulants
CPT/HCPCS: 43239; 45380; 88342 ×2; 88305 ×2; 00813; J2704; 813